=== PATIENT | female | born 1940 | race Caucasian/White ===

== ENCOUNTER 2023-10-15 14:59 | Outpatient (CLI) | payer BC, MEDICARE | END 2023-10-15 15:00 | disposition home or self-care (01) | LOC: ULT 14:59 | PROVIDERS: ATTEND Family Medicine | DX: R10.9 Unspecified abdominal pain (principal); R11.0 Nausea; K80.20 Calculus of gallbladder without cholecystitis without obstruction; J90 Pleural effusion, not elsewhere classified; K76.9 Liver disease, unspecified | CPT/HCPCS: 76700 ==